=== PATIENT | female | born 1990 | race African-American/Black ===

== ENCOUNTER 2016-05-20 00:48 | Emergency (ER) | payer BC ==
[~2016-05-20] VITALS: Ht 167.6 cm; Wt 123.8 kg
[~2016-05-20 00:48] MED LIST: BENTYL10 MG PO; CITRATE OF MAG296 ML PO; LEVAQUIN500 MG PO; LEXAPRO10 MG PO; MEDROL DOSEPAK4 MG PO; MILK OF MAGN PO; NAPROXEN500 MG PO; NORCO 5/3251 TABLET PO; PRAZOSIN HCL1 MG PO; PREDNISONE20 MG PO; PROAIR HFA8.5 GM IH; ROBITUSSIN AC,T10 ML PO; TESSALON PERLE100 MG PO; ULTRAM50 MG PO; ZITHROMAX500 MG PO; ZOFRAN8 MG PO
[2016-05-20 00:50] VITALS: BP 138/107
[2016-05-20] MEDS ORDERED: NORCO 5/3251 TABLET PO (01:55)
[2016-05-20] MEDS ORDERED: NAPROSYN500 MG PO (01:55)
== END 2016-05-20 02:16 | disposition home or self-care (01) ==
LOC: EME 00:48
DX: S93.401A Sprain of unspecified ligament of right ankle, initial encounter (principal); S93.601A Unspecified sprain of right foot, initial encounter; W51.XXXA Accidental striking against or bumped into by another person, initial encounter; Y93.41 Activity, dancing
CPT/HCPCS: 73610; 73630; 99281; 99284

== ENCOUNTER 2016-06-06 18:39 | Emergency (ER) | payer OTHER, BC ==
[~2016-06-06] VITALS: Ht 167.6 cm; Wt 125.0 kg
[~2016-06-06 18:39] MED LIST changes: +NAPROSYN500 MG PO
[2016-06-06] MEDS ORDERED: SKELAXIN800 MG PO (21:06)
[2016-06-06] MEDS ORDERED: NAPROXEN500 MG PO (21:06)
[2016-06-06 21:23] VITALS: BP 135/77
== END 2016-06-06 21:23 | disposition home or self-care (01) ==
LOC: EME 18:39
DX: S16.1XXA Strain of muscle, fascia and tendon at neck level, initial encounter (principal); S09.90XA Unspecified injury of head, initial encounter; V49.40XA Driver injured in collision with unspecified motor vehicles in traffic accident, initial encounter; I10 Essential (primary) hypertension
CPT/HCPCS: 99281; 99284

== ENCOUNTER 2016-06-17 20:34 | Emergency (ER) | payer BC ==
[~2016-06-17] VITALS: Ht 167.6 cm; Wt 124.2 kg
[~2016-06-17 20:34] MED LIST changes: +SKELAXIN800 MG PO
[2016-06-17] MEDS ORDERED: MEDROL DOSEPAK4 MG PO (21:40)
[2016-06-17] MEDS ORDERED: ZANTAC300 MG PO (21:40)
[2016-06-17] MEDS ORDERED: EPIPEN ADU0.3 MG/0.3 IM (21:40)
[2016-06-17 22:31] VITALS: BP 123/65
== END 2016-06-17 22:20 | disposition home or self-care (01) ==
LOC: EME 20:34
DX: T78.1XXA Other adverse food reactions, not elsewhere classified, initial encounter (principal); R06.00 Dyspnea, unspecified; Z91.013 Allergy to seafood
CPT/HCPCS: 99281; 99285; J1100; J1200; J7030; S0028

== ENCOUNTER 2016-07-23 19:00 | Emergency (ER) | payer BC ==
[~2016-07-23] VITALS: Ht 167.6 cm; Wt 125.2 kg
[~2016-07-23 19:00] MED LIST changes: +EPIPEN ADU0.3 MG/0.3 IM; +ZANTAC300 MG PO
[2016-07-23 20:04] LABS: HEMATOCRIT 35.1 % (36.0-46.0); MCH 25.9 PG (29.0-34.0); MCHC 30.5 G/DL (30.0-36.0); MEAN PLAT.VOLUME 10.6 uM^3 (9.5-12.4); PLATELET COUNT 305 K/uL (156-360); RBC DIS.WIDTH-CV 16.7 % (11.8-14.6); RBC DIS.WIDTH-SD 52.5 % (39-53); RED BLOOD COUNT 4.13 M/uL (3.80-5.20); WHITE BLOOD COUNT 5.4 K/uL (4.1-10.2)
[2016-07-23 20:14] LABS: CHLORIDE 102 mEq/L (99-109)
[2016-07-23 20:15] LABS: POTASSIUM 3.6 mEq/L (3.7-5.4); SODIUM 137 mEq/L (136-147)
[2016-07-23 20:17] LABS: GLUCOSE 88 mg/dL (70-99)
[2016-07-23 20:18] LABS: ANION GAP 11 MEQ/L (2-14)
[2016-07-23 20:19] LABS: TOTAL BILIRUBIN 0.9 mg/dL (0.0-1.0)
[2016-07-23 20:20] LABS: ALKALINE PHOSPHATASE 60 IU/L (3-129); GFR ESTIMATE (CALCULATED) > 59 mL/min/
[2016-07-23 20:22] LABS: UREA NITROGEN (BUN) 6 mg/dL (9-23)
[2016-07-23 20:30] LABS: QUANTITATIVE HCG < 4.0 MIU/ML
[2016-07-23 21:35] LABS: ADD MIUA? YES; BILIRUBIN SMALL; BLOOD MODERATE; COLOR AMBER ((YELLOW)); GLUCOSE (STRIP) NEGATIVE; KETONES 5; LEUKOCYTES NEGATIVE; NITRITE NEGATIVE; PROTEIN (STRIP) 100; SPECIFIC GRAVITY 1.033 (1.000-1.030)
[2016-07-23 22:09] LABS: BACTERIA RARE /HPF; EPITHELIAL CELLS 4+ /HPF; MUCUS 2+ /LPF; WHITE BLOOD CELLS 0-5 /HPF (0-5)
[2016-07-23 22:10] LABS: CASTS NONE SEEN /LPF; CRYSTALS NONE SEEN
[2016-07-23] MEDS ORDERED: BENTYL20 MG PO (23:35)
[2016-07-23] MEDS ORDERED: REGLAN5 MG PO (23:35)
[2016-07-24] VITALS: BP 110/60
== END 2016-07-24 00:06 | disposition home or self-care (01) ==
LOC: EME 19:00
PROVIDERS: Nurse Practitioner Family
DX: I88.0 Nonspecific mesenteric lymphadenitis (principal); R11.2 Nausea with vomiting, unspecified; F17.200 Nicotine dependence, unspecified, uncomplicated
CPT/HCPCS: 74177; 80053; 81003; 84702; 85027; 87493; 87506; 99281; 99285; J1200; J1885; J2405; J3010; J7030; J7040

== ENCOUNTER 2016-08-04 08:11 | Emergency (ER) | payer SELFPAY ==
[~2016-08-04] VITALS: Ht 167.6 cm; Wt 123.6 kg
[~2016-08-04 08:11] MED LIST changes: +BENTYL20 MG PO; +REGLAN5 MG PO
[2016-08-04 08:14] VITALS: BP 118/83
[2016-08-04] MEDS ORDERED: FLEXERIL10 MG PO (08:30)
[2016-08-04] MEDS ORDERED: PREDNISONE20 MG PO (08:30)
[2016-08-04] MEDS ORDERED: MOTRIN800 MG PO (08:30)
== END 2016-08-04 09:07 | disposition home or self-care (01) ==
LOC: EME 08:11
DX: M54.2 Cervicalgia (principal); M54.89 Other dorsalgia; M25.612 Stiffness of left shoulder, not elsewhere classified; F17.200 Nicotine dependence, unspecified, uncomplicated
CPT/HCPCS: 99281; 99284; J7512

== ENCOUNTER 2016-09-25 09:27 | Emergency (ER) | payer SELFPAY ==
[~2016-09-25] VITALS: Ht 167.6 cm; Wt 126.1 kg
[~2016-09-25 09:27] MED LIST changes: +FLEXERIL10 MG PO; +MOTRIN800 MG PO
[2016-09-25 11:14] LABS: BASOPHIL COUNT 0.1 K/uL (0-0.1); EOSINOPHIL (%) 4.7 % (0-5); EOSINOPHIL COUNT 0.3 K/uL (0-0.3); HEMATOCRIT 33.2 % (36.0-46.0); IMMATURE GRANULOCYTE (%) 0.3 % (0.0-0.7); INSTRUMENT ABS NEUTROPHIL CT 3.3 K/uL; LYMPHOCYTE COUNT 1.7 K/uL (1.0-2.8); MCH 25.2 PG (29.0-34.0); MCHC 30.1 G/DL (30.0-36.0); MCV 83.6 FL (83-99); MEAN PLAT.VOLUME 11.7 uM^3 (9.5-12.4); MONOCYTE (%) 11.3 % (3-12); MONOCYTE COUNT 0.7 K/uL (0-0.8); NEUTROPHIL (%) 54.6 % (45-76); NEUTROPHIL COUNT 3.3 K/uL (1.8-6.4); PLATELET COUNT 361 K/uL (156-360); RBC DIS.WIDTH-CV 15.4 % (11.8-14.6); RBC DIS.WIDTH-SD 46.3 % (39-53); RED BLOOD COUNT 3.97 M/uL (3.80-5.20)
[2016-09-25 11:30] LABS: CHLORIDE 105 mEq/L (99-109); POTASSIUM 4.5 mEq/L (3.7-5.4); SODIUM 137 mEq/L (136-147)
[2016-09-25 11:31] LABS: GLUCOSE 86 mg/dL (70-99)
[2016-09-25 11:33] LABS: ANION GAP 10 MEQ/L (2-14)
[2016-09-25 11:35] LABS: GFR ESTIMATE (CALCULATED) > 59 mL/min/
[2016-09-25 11:36] LABS: UREA NITROGEN (BUN) 7 mg/dL (9-23)
[2016-09-25] MEDS ORDERED: MOTRIN600 MG PO (12:32)
[2016-09-25] MEDS ORDERED: VIBRAMYCIN100 MG PO (12:32)
[2016-09-25 13:18] VITALS: BP 135/79
== END 2016-09-25 13:22 | disposition home or self-care (01) ==
LOC: EME 09:27
PROVIDERS: Emergency Medicine
DX: J20.9 Acute bronchitis, unspecified (principal); F17.200 Nicotine dependence, unspecified, uncomplicated; J45.909 Unspecified asthma, uncomplicated; M79.1 Myalgia
CPT/HCPCS: 71020; 80048; 84443; 85025; 99281; 99284; J2270; J7030

== ENCOUNTER 2016-11-02 18:22 | Emergency (ER) | payer SELFPAY ==
[~2016-11-02] VITALS: Ht 167.6 cm; Wt 123.0 kg
[~2016-11-02 18:22] MED LIST changes: +MOTRIN600 MG PO; +VIBRAMYCIN100 MG PO
[2016-11-02 19:05] LABS: HEMATOCRIT 31.3 % (36.0-46.0); MCV 80.7 FL (83-99); MEAN PLAT.VOLUME 10.3 uM^3 (9.5-12.4); PLATELET COUNT 430 K/uL (156-360); RBC DIS.WIDTH-CV 15.7 % (11.8-14.6); RBC DIS.WIDTH-SD 45.8 % (39-53); RED BLOOD COUNT 3.88 M/uL (3.80-5.20); WHITE BLOOD COUNT 10.4 K/uL (4.1-10.2)
[2016-11-02 19:12] LABS: CHLORIDE 105 mEq/L (99-109); POTASSIUM 4.3 mEq/L (3.7-5.4); SODIUM 139 mEq/L (136-147)
[2016-11-02 19:13] LABS: GLUCOSE 93 mg/dL (70-99)
[2016-11-02 19:15] LABS: ANION GAP 11 MEQ/L (2-14)
[2016-11-02 19:17] LABS: GFR ESTIMATE (CALCULATED) > 59 mL/min/
[2016-11-02 19:18] LABS: UREA NITROGEN (BUN) 9 mg/dL (9-23)
[2016-11-02 19:24] LABS: TROP-I INTERPRETATION NEGATIVE; TROPONIN-I < 0.01 ng/mL (0.0-0.30)
[2016-11-02 21:24] LABS: TROP-I INTERPRETATION NEGATIVE; TROPONIN-I < 0.01 ng/mL (0.0-0.30)
[2016-11-02] MEDS ORDERED: NAPROSYN500 MG PO (22:02)
[2016-11-02] MEDS ORDERED: IMITREX50 MG PO (22:02)
[2016-11-02] MEDS ORDERED: REGLAN10 MG PO (22:02)
[2016-11-02 22:41] LABS: ADD MIUA? YES; BILIRUBIN NEGATIVE; BLOOD NEGATIVE; COLOR YELLOW ((YELLOW)); GLUCOSE (STRIP) NEGATIVE; KETONES NEGATIVE; LEUKOCYTES NEGATIVE; NITRITE NEGATIVE; PROTEIN (STRIP) NEGATIVE; SPECIFIC GRAVITY 1.012 (1.000-1.030); UROBILINOGEN 0.2 MG/DL (0.2-1.0)
[2016-11-02 22:54] LABS: BACTERIA RARE /HPF; EPITHELIAL CELLS 1+ /HPF; MUCUS TRACE /LPF; RED BLOOD CELLS 0-5 /HPF (0-5); WHITE BLOOD CELLS 0-5 /HPF (0-5)
[2016-11-02 22:59] VITALS: BP 130/61
== END 2016-11-02 23:00 | disposition home or self-care (01) ==
LOC: RME 18:22 → EME 18:22 → RME 23:00
PROVIDERS: Physician Assistant
DX: G43.909 Migraine, unspecified, not intractable, without status migrainosus (principal); R07.89 Other chest pain; J45.909 Unspecified asthma, uncomplicated; F17.200 Nicotine dependence, unspecified, uncomplicated
CPT/HCPCS: 71020; 80048; 81003; 84484; 85027; 93005; 99281; 99285; J1200; J1885; J2765; J3030; J7030

== ENCOUNTER 2016-11-10 06:38 | Emergency (ER) | payer SELFPAY ==
[~2016-11-10] VITALS: Ht 167.6 cm; Wt 123.1 kg
[~2016-11-10 06:38] MED LIST changes: +IMITREX50 MG PO; +REGLAN10 MG PO
[2016-11-10 07:42] LABS: HEMATOCRIT 30.3 % (36.0-46.0); MCH 24.1 PG (29.0-34.0); MCV 80.2 FL (83-99); RBC DIS.WIDTH-CV 15.7 % (11.8-14.6); RBC DIS.WIDTH-SD 45.5 % (39-53); RED BLOOD COUNT 3.78 M/uL (3.80-5.20)
[2016-11-10 07:47] LABS: CHLORIDE 105 mEq/L (99-109); POTASSIUM 4.3 mEq/L (3.7-5.4); SODIUM 140 mEq/L (136-147)
[2016-11-10 07:50] LABS: GLUCOSE 97 mg/dL (70-99)
[2016-11-10 07:51] LABS: ANION GAP 14 MEQ/L (2-14)
[2016-11-10 07:52] LABS: TOTAL BILIRUBIN 0.3 mg/dL (0.0-1.0)
[2016-11-10 07:53] LABS: ALKALINE PHOSPHATASE 66 IU/L (3-129); GFR ESTIMATE (CALCULATED) > 59 mL/min/
[2016-11-10 07:55] LABS: UREA NITROGEN (BUN) 10 mg/dL (9-23)
[2016-11-10 08:02] LABS: QUANTITATIVE HCG < 4.0 MIU/ML
[2016-11-10 08:06] LABS: BASOPHIL COUNT 0.1 K/uL (0-0.1); EOSINOPHIL (%) 2.5 % (0-5); EOSINOPHIL COUNT 0.3 K/uL (0-0.3); IMMATURE GRANULOCYTE (%) 0.7 % (0.0-0.7); IMMATURE GRANULOCYTE COUNT 0.1 K/uL; INSTRUMENT ABS NEUTROPHIL CT 6.7 K/uL; LYMPHOCYTE COUNT 3.2 K/uL (1.0-2.8); MONOCYTE (%) 6.4 % (3-12); MONOCYTE COUNT 0.7 K/uL (0-0.8); NEUTROPHIL (%) 60.6 % (45-76); NEUTROPHIL COUNT 6.7 K/uL (1.8-6.4)
[2016-11-10 08:20] LABS: MEAN PLAT.VOLUME 11.3 uM^3 (9.5-12.4); PLAT.SUFFICIENCY ADEQUATE
[2016-11-10 08:59] LABS: ADD MIUA? YES; BILIRUBIN NEGATIVE; BLOOD LARGE; COLOR YELLOW ((YELLOW)); GLUCOSE (STRIP) NEGATIVE; KETONES NEGATIVE; LEUKOCYTES TRACE; NITRITE NEGATIVE; PROTEIN (STRIP) 30; SPECIFIC GRAVITY 1.023 (1.000-1.030); UROBILINOGEN 0.2 MG/DL (0.2-1.0)
[2016-11-10 09:08] LABS: PLATELET COUNT 236 K/uL (156-360)
[2016-11-10 09:12] LABS: BACTERIA RARE /HPF; CASTS NONE SEEN /LPF; CRYSTALS NONE SEEN; EPITHELIAL CELLS RARE /HPF; MUCUS NONE SEEN /LPF; RED BLOOD CELLS 40-50 /HPF (0-5); WHITE BLOOD CELLS NONE SEEN /HPF (0-5)
[2016-11-10] MEDS ORDERED: ZOFRAN ODT8 MG PO (11:41)
[2016-11-10] MEDS ORDERED: BENTYL20 MG PO (11:41)
[2016-11-10 11:54] VITALS: BP 110/55
== END 2016-11-10 12:02 | disposition home or self-care (01) ==
LOC: EME → EDBD 06:38 → EME 06:38
PROVIDERS: Physician Assistant
DX: R10.31 Right lower quadrant pain (principal); R11.0 Nausea; N83.202 Unspecified ovarian cyst, left side; F17.200 Nicotine dependence, unspecified, uncomplicated
CPT/HCPCS: 76856; 80053; 81003; 84702; 85025; 99281; 99284; J2270

== ENCOUNTER 2016-11-29 20:54 | Emergency (ER) | payer SELFPAY ==
[~2016-11-29] VITALS: Ht 167.6 cm; Wt 119.8 kg
[~2016-11-29 20:54] MED LIST changes: +ZOFRAN ODT8 MG PO
[2016-11-29 23:41] LABS: HEMATOCRIT 30.3 % (36.0-46.0); MCH 23.6 PG (29.0-34.0); MCV 78.7 FL (83-99); MEAN PLAT.VOLUME 10.8 uM^3 (9.5-12.4); RBC DIS.WIDTH-CV 15.9 % (11.8-14.6); RBC DIS.WIDTH-SD 45.1 % (39-53); RED BLOOD COUNT 3.85 M/uL (3.80-5.20); WHITE BLOOD COUNT 11.8 K/uL (4.1-10.2)
[2016-11-29 23:42] LABS: PLATELET COUNT 471 K/uL (156-360)
[2016-11-29 23:48] LABS: CHLORIDE 105 mEq/L (99-109); POTASSIUM 3.6 mEq/L (3.7-5.4); SODIUM 142 mEq/L (136-147)
[2016-11-29 23:50] LABS: GLUCOSE 82 mg/dL (70-99)
[2016-11-29 23:51] LABS: ANION GAP 12 MEQ/L (2-14)
[2016-11-29 23:52] LABS: TOTAL BILIRUBIN 0.3 mg/dL (0.0-1.0)
[2016-11-29 23:54] LABS: ALKALINE PHOSPHATASE 81 IU/L (3-129); GFR ESTIMATE (CALCULATED) > 59 mL/min/
[2016-11-29 23:55] LABS: UREA NITROGEN (BUN) 10 mg/dL (9-23)
[2016-11-30 00:05] LABS: QUANTITATIVE HCG < 4.0 MIU/ML
[2016-11-30] MEDS ORDERED: NORCO 5/3251 TABLET PO (01:05)
[2016-11-30] MEDS ORDERED: FLEXERIL10 MG PO (01:05)
[2016-11-30] MEDS ORDERED: MEDROL DOSEPAK4 MG PO (01:05)
[2016-11-30 01:18] VITALS: BP 127/73
== END 2016-11-30 01:19 | disposition home or self-care (01) ==
LOC: EME 20:54
PROVIDERS: Physician Assistant
DX: M50.121 Cervical disc disorder at C4-C5 level with radiculopathy (principal); M50.122 Cervical disc disorder at C5-C6 level with radiculopathy; M50.123 Cervical disc disorder at C6-C7 level with radiculopathy; D64.9 Anemia, unspecified; M25.512 Pain in left shoulder; R42 Dizziness and giddiness; N92.0 Excessive and frequent menstruation with regular cycle; F17.200 Nicotine dependence, unspecified, uncomplicated
CPT/HCPCS: 72125; 73030; 80053; 84702; 85027; 99281; 99283; J7512

== ENCOUNTER 2016-12-05 21:11 | Emergency (ER) | payer SELFPAY ==
[~2016-12-05] VITALS: Ht 167.6 cm; Wt 123.0 kg
[2016-12-05] MEDS ORDERED: PREDNISONE20 MG PO (22:39)
[2016-12-05 23:35] VITALS: BP 125/80
== END 2016-12-05 23:37 | disposition home or self-care (01) ==
LOC: EME 21:11 → EXP 21:11
DX: M54.12 Radiculopathy, cervical region (principal); J45.909 Unspecified asthma, uncomplicated
CPT/HCPCS: 99281; 99284; J7512

== ENCOUNTER 2016-12-14 01:09 | Emergency (ER) | payer SELFPAY ==
[~2016-12-14] VITALS: Ht 170.2 cm; Wt 121.2 kg
[2016-12-14 01:11] VITALS: BP 156/100
[2016-12-14] MEDS ORDERED: MOTRIN800 MG PO (02:41)
== END 2016-12-14 02:59 | disposition home or self-care (01) ==
LOC: EME 01:09
DX: S43.422A Sprain of left rotator cuff capsule, initial encounter (principal); X58.XXXA Exposure to other specified factors, initial encounter; F17.200 Nicotine dependence, unspecified, uncomplicated
CPT/HCPCS: 99281; 99283

== ENCOUNTER 2017-01-02 16:07 | Emergency (ER) | payer SELFPAY ==
[~2017-01-02] VITALS: Ht 167.6 cm; Wt 119.3 kg
[2017-01-02] MEDS ORDERED: ULTRAM50 MG PO (17:35)
[2017-01-02 17:51] LABS: ADD MIUA? YES; BILIRUBIN NEGATIVE; BLOOD NEGATIVE; COLOR YELLOW ((YELLOW)); GLUCOSE (STRIP) NEGATIVE; KETONES NEGATIVE; LEUKOCYTES NEGATIVE; NITRITE NEGATIVE; PROTEIN (STRIP) NEGATIVE; SPECIFIC GRAVITY 1.027 (1.000-1.030); UROBILINOGEN 0.2 MG/DL (0.2-1.0)
[2017-01-02 18:01] LABS: MCH 22.9 PG (29.0-34.0); MCHC 29.6 G/DL (30.0-36.0); MCV 77.1 FL (83-99); MEAN PLAT.VOLUME 10.8 uM^3 (9.5-12.4); PLATELET COUNT 455 K/uL (156-360); RBC DIS.WIDTH-CV 16.2 % (11.8-14.6); RBC DIS.WIDTH-SD 45.5 % (39-53)
[2017-01-02 18:07] LABS: CHLORIDE 108 mEq/L (99-109); POTASSIUM 3.7 mEq/L (3.7-5.4); SODIUM 142 mEq/L (136-147)
[2017-01-02 18:09] LABS: GLUCOSE 81 mg/dL (70-99)
[2017-01-02 18:10] LABS: ANION GAP 13 MEQ/L (2-14)
[2017-01-02 18:11] LABS: TOTAL BILIRUBIN 0.4 mg/dL (0.0-1.0)
[2017-01-02 18:12] LABS: ALKALINE PHOSPHATASE 65 IU/L (3-129)
[2017-01-02 18:12] LABS: BACTERIA NONE SEEN /HPF; EPITHELIAL CELLS 2+ /HPF; MUCUS TRACE /LPF; RED BLOOD CELLS 0-5 /HPF (0-5); UCUL ADDED? NO; WHITE BLOOD CELLS 0-5 /HPF (0-5)
[2017-01-02 18:13] LABS: GFR ESTIMATE (CALCULATED) > 59 mL/min/
[2017-01-02 18:14] LABS: UREA NITROGEN (BUN) 8 mg/dL (9-23)
[2017-01-02 18:26] LABS: QUANTITATIVE HCG < 4.0 MIU/ML
[2017-01-02] MEDS ORDERED: MOTRIN800 MG PO (19:04)
[2017-01-02] MEDS ORDERED: ZOFRAN ODT4 MG PO (19:04)
[2017-01-02 19:24] VITALS: BP 129/94
== END 2017-01-02 19:29 | disposition home or self-care (01) ==
LOC: EME 16:07
PROVIDERS: Nurse Practitioner Family
DX: R10.9 Unspecified abdominal pain (principal); M54.9 Dorsalgia, unspecified; R11.2 Nausea with vomiting, unspecified; R19.7 Diarrhea, unspecified; J45.909 Unspecified asthma, uncomplicated; F17.200 Nicotine dependence, unspecified, uncomplicated
CPT/HCPCS: 74177; 80053; 81003; 84702; 85027; 99281; 99285; J1200; J1885; J2405; J7030

== ENCOUNTER 2017-01-11 00:55 | Emergency (ER) | payer SELFPAY ==
[~2017-01-11] VITALS: Ht 167.6 cm; Wt 119.0 kg
[~2017-01-11 00:55] MED LIST changes: +ZOFRAN ODT4 MG PO
[2017-01-11 01:36] LABS: INFLUENZA A VIRAL ANTIGEN NEGATIVE; INFLUENZA B VIRAL ANTIGEN NEGATIVE
[2017-01-11 04:18] LABS: BASOPHIL COUNT 0.1 K/uL (0-0.1); EOSINOPHIL (%) 0.6 % (0-5); EOSINOPHIL COUNT 0.1 K/uL (0-0.3); HEMATOCRIT 26.2 % (36.0-46.0); IMMATURE GRANULOCYTE (%) 0.5 % (0.0-0.7); IMMATURE GRANULOCYTE COUNT 0.1 K/uL; INSTRUMENT ABS NEUTROPHIL CT 9.5 K/uL; LYMPHOCYTE COUNT 2.4 K/uL (1.0-2.8); MCH 22.6 PG (29.0-34.0); MCHC 29.8 G/DL (30.0-36.0); MCV 75.9 FL (83-99); MEAN PLAT.VOLUME 10.7 uM^3 (9.5-12.4); MONOCYTE COUNT 0.9 K/uL (0-0.8); NEUTROPHIL (%) 73.4 % (45-76); NEUTROPHIL COUNT 9.5 K/uL (1.8-6.4); PLATELET COUNT 386 K/uL (156-360); RBC DIS.WIDTH-CV 16.8 % (11.8-14.6); RBC DIS.WIDTH-SD 45.2 % (39-53); RED BLOOD COUNT 3.45 M/uL (3.80-5.20)
[2017-01-11 04:31] LABS: CHLORIDE 105 mEq/L (99-109); POTASSIUM 3.5 mEq/L (3.7-5.4); SODIUM 138 mEq/L (136-147)
[2017-01-11 04:33] LABS: GLUCOSE 91 mg/dL (70-99)
[2017-01-11 04:35] LABS: ANION GAP 12 MEQ/L (2-14)
[2017-01-11 04:37] LABS: GFR ESTIMATE (CALCULATED) > 59 mL/min/
[2017-01-11 04:38] LABS: UREA NITROGEN (BUN) 7 mg/dL (9-23)
[2017-01-11 04:40] LABS: INTERNAL CONTROL VALID? YES; MONOSPOT (MONONUCLEOSIS SEROL) NEGATIVE
[2017-01-11 04:48] LABS: ADD MIUA? NO; BILIRUBIN NEGATIVE; BLOOD NEGATIVE; COLOR YELLOW ((YELLOW)); GLUCOSE (STRIP) NEGATIVE; KETONES NEGATIVE; LEUKOCYTES NEGATIVE; NITRITE NEGATIVE; PROTEIN (STRIP) NEGATIVE; SPECIFIC GRAVITY 1.019 (1.000-1.030); UROBILINOGEN 0.2 MG/DL (0.2-1.0)
[2017-01-11 04:50] LABS: UCUL ADDED? NO
[2017-01-11] MEDS ORDERED: MOTRIN600 MG PO (06:01)
[2017-01-11] MEDS ORDERED: TYLENOL WITH C1 EACH PO (06:01)
[2017-01-11 06:14] VITALS: BP 113/69
== END 2017-01-11 06:15 | disposition home or self-care (01) ==
LOC: EME 00:55
PROVIDERS: Emergency Medicine
DX: J06.9 Acute upper respiratory infection, unspecified (principal); Z87.01 Personal history of pneumonia (recurrent); F17.200 Nicotine dependence, unspecified, uncomplicated
CPT/HCPCS: 71020; 80048; 81003; 85025; 86308; 87502; 87651 90; 99281; 99285; J1100; J1885; J3010; J7030

== ENCOUNTER 2017-02-07 19:46 | Emergency (ER) | payer SELFPAY ==
[~2017-02-07] VITALS: Ht 167.6 cm; Wt 122.6 kg
[~2017-02-07 19:46] MED LIST changes: +TYLENOL WITH C1 EACH PO
[2017-02-07 21:40] LABS: HEMATOCRIT 28.9 % (36.0-46.0); MCH 22.4 PG (29.0-34.0); MCHC 30.1 G/DL (30.0-36.0); MCV 74.3 FL (83-99); MEAN PLAT.VOLUME 10.8 uM^3 (9.5-12.4); PLATELET COUNT 462 K/uL (156-360); RBC DIS.WIDTH-CV 17.2 % (11.8-14.6); RED BLOOD COUNT 3.89 M/uL (3.80-5.20); WHITE BLOOD COUNT 11.4 K/uL (4.1-10.2)
[2017-02-07 21:45] LABS: CHLORIDE 104 mEq/L (99-109); POTASSIUM 3.1 mEq/L (3.7-5.4); SODIUM 140 mEq/L (136-147)
[2017-02-07 21:47] LABS: GLUCOSE 133 mg/dL (70-99)
[2017-02-07 21:49] LABS: ANION GAP 14 MEQ/L (2-14)
[2017-02-07 21:51] LABS: GFR ESTIMATE (CALCULATED) > 59 mL/min/
[2017-02-07 21:52] LABS: UREA NITROGEN (BUN) 8 mg/dL (9-23)
[2017-02-07 23:40] LABS: D-DIMER ELISA < 150.00 ng/mLDDU (<230)
[2017-02-08] MEDS ORDERED: PREDNISONE20 MG PO (01:09)
[2017-02-08] MEDS ORDERED: DIFLUCAN150 MG PO (01:09)
[2017-02-08] MEDS ORDERED: TESSALON PERLE100 MG PO (01:09)
[2017-02-08] MEDS ORDERED: VENTOLIN HFA18 GM IH (01:09)
[2017-02-08 01:20] VITALS: BP 136/87
== END 2017-02-08 01:21 | disposition home or self-care (01) ==
LOC: EME 19:46
DX: B34.9 Viral infection, unspecified (principal); J06.9 Acute upper respiratory infection, unspecified; J40 Bronchitis, not specified as acute or chronic; Z87.09 Personal history of other diseases of the respiratory system; Z87.891 Personal history of nicotine dependence; R11.10 Vomiting, unspecified; R00.0 Tachycardia, unspecified
CPT/HCPCS: 71020; 80048; 85027; 85379; 94640; 99281; 99284; J2930; J7030; J7512

== ENCOUNTER 2017-05-12 09:13 | Emergency (ER) | payer OTHER ==
[~2017-05-12] VITALS: Ht 165.1 cm; Wt 121.6 kg
[~2017-05-12 09:13] MED LIST changes: +DIFLUCAN150 MG PO; +VENTOLIN HFA18 GM IH
[2017-05-12 12:26] VITALS: BP 133/80
== END 2017-05-12 12:29 | disposition home or self-care (01) ==
LOC: EME 09:13
DX: R51 Headache (principal); J45.909 Unspecified asthma, uncomplicated; G43.909 Migraine, unspecified, not intractable, without status migrainosus; Z91.041 Radiographic dye allergy status; F17.200 Nicotine dependence, unspecified, uncomplicated
CPT/HCPCS: 70450; J0780; J1200; J2060; J7030

== ENCOUNTER 2017-06-19 00:24 | Emergency (ER) | payer OTHER ==
[~2017-06-19] VITALS: Ht 167.6 cm; Wt 123.8 kg
[2017-06-19] MEDS ORDERED: ZITHROMAX250 MG PO (06:08)
[2017-06-19] MEDS ORDERED: MOTRIN600 MG PO (06:09)
[2017-06-19] MEDS ORDERED: TYLENOL WITH C1 EACH PO (06:09)
[2017-06-19 06:18] VITALS: BP 141/68
== END 2017-06-19 06:18 | disposition home or self-care (01) ==
LOC: EME 00:24
PROVIDERS: Emergency Medicine
DX: J18.9 Pneumonia, unspecified organism (principal); J02.9 Acute pharyngitis, unspecified; R49.0 Dysphonia; F17.200 Nicotine dependence, unspecified, uncomplicated
CPT/HCPCS: 71046; 87502; 87651 90; J1100

== ENCOUNTER 2017-08-06 18:40 | Inpatient (IN) | payer OTHER ==
[~2017-08-06] VITALS: Ht 167.6 cm; Wt 125.6 kg
[~2017-08-06 18:40] MED LIST changes: +ZITHROMAX250 MG PO
[2017-08-06 19:33] LABS: HEMATOCRIT 30.5 % (36.0-46.0); HEMOGLOBIN 9.7 G/DL (11.9-15.5); MCH 26.1 PG (29.0-34.0); MCHC 31.8 G/DL (30.0-36.0); PLATELET COUNT 385 K/uL (156-360); RBC DIS.WIDTH-CV 16.2 % (11.8-14.6); RBC DIS.WIDTH-SD 48.4 % (39-53); RED BLOOD COUNT 3.72 M/uL (3.80-5.20)
[2017-08-06 19:43] LABS: CHLORIDE 105 mEq/L (99-109); POTASSIUM 3.5 mEq/L (3.7-5.4); SODIUM 141 mEq/L (136-147)
[2017-08-06 19:45] LABS: GLUCOSE 103 mg/dL (70-99)
[2017-08-06 19:48] LABS: CREATININE 0.7 mg/dL (0.6-1.3); GFR ESTIMATE (CALCULATED) > 59 mL/min/
[2017-08-06 19:49] LABS: UREA NITROGEN (BUN) 9 mg/dL (9-23)
[2017-08-06 19:57] LABS: TROP-I INTERPRETATION NEGATIVE; TROPONIN-I < 0.01 ng/mL (0.0-0.30)
[2017-08-06 21:34] LABS: QUANTITATIVE HCG < 4.0 MIU/ML
[2017-08-06 22:33] LABS: D-DIMER ELISA < 150.00 ng/mLDDU (<230)
[2017-08-07] LABS: CARBON DIOXIDE (BICARBONATE) 26.1 MEQ/L (20-31)
[2017-08-07] MEDS ORDERED: TYLENOL EXTRA500 MG PO (00:35)
[2017-08-07 03:45] VITALS: BP 126/65
[2017-08-07 07:20] VITALS: BP 114/55
[2017-08-07 11:07] VITALS: BP 111/52
[2017-08-07 15:29] VITALS: BP 127/59
[2017-08-07 20:50] VITALS: BP 125/56
[2017-08-08] VITALS (7 sets, daily range): BP systolic 98–137; BP diastolic 51–77
[2017-08-08 12:28] LABS: HEMATOCRIT 31.8 % (36.0-46.0); HEMOGLOBIN 9.8 G/DL (11.9-15.5); MCH 25.9 PG (29.0-34.0); MCHC 30.8 G/DL (30.0-36.0); MCV 84.1 FL (83-99); PLATELET COUNT 448 K/uL (156-360); RBC DIS.WIDTH-CV 16.4 % (11.8-14.6); RBC DIS.WIDTH-SD 50.6 % (39-53); RED BLOOD COUNT 3.78 M/uL (3.80-5.20)
[2017-08-08 13:20] LABS: CHLORIDE 104 MEQ/L (99-109); CREATININE 0.6 MG/DL (0.6-1.3); GFR ESTIMATE (CALCULATED) > 59 mL/min/; GLUCOSE 131 mg/dL (70-99); SODIUM 136 MEQ/L (136-147); UREA NITROGEN (BUN) 11 mg/dL (9-23)
[2017-08-08 13:22] LABS: POTASSIUM 4.4 MEQ/L (3.7-5.4)
[2017-08-09 07:37] VITALS: BP 106/57
[2017-08-09] MEDS ORDERED: DULERA 200 MCG/13 GM IH (11:13)
[2017-08-09] MEDS ORDERED: PREDNISONE5 M1 PO (11:13)
[2017-08-09] MEDS ORDERED: TRAMADOL HCL50 MG PO (11:13)
[2017-08-09] MEDS ORDERED: NICOTINE PATCH1 EAC2 TD (11:13)
== END 2017-08-09 12:51 | disposition home or self-care (01) | DRG 202 ==
LOC: EME 18:40 → ENRESERV 08-07 01:27 → EDOF 08-07 01:29 → ENRESERV 08-07 01:34 → 4EAST 08-07 03:58 → 5SOUTH 08-07 10:13 → ENRESERV 08-08 00:23 → 5SOUTH 08-08 01:06 → ENPENDDIS 08-09 12:06 → 5SOUTH 08-09 12:51
PROVIDERS: Hospitalist; Physician Assistant
DX: J20.9 Acute bronchitis, unspecified (principal); J45.41 Moderate persistent asthma with (acute) exacerbation; E87.6 Hypokalemia; D72.829 Elevated white blood cell count, unspecified; T38.0X5A Adverse effect of glucocorticoids and synthetic analogues, initial encounter; R00.0 Tachycardia, unspecified; T48.6X5A Adverse effect of antiasthmatics, initial encounter; F17.210 Nicotine dependence, cigarettes, uncomplicated; E66.01 Morbid (severe) obesity due to excess calories; Z68.41 Body mass index [BMI] 40.0-44.9, adult; Z71.6 Tobacco abuse counseling; Z80.0 Family history of malignant neoplasm of digestive organs
CPT/HCPCS: 71046; 80048; 80306 90; 81003; 82803; 84484; 84702; 85027; 85379; 87502; 93005; 94640; 94640 76; 94644; 94645; 99202; 99281; 99285; J1200; J1650; J1885; J2060; J2920; J2930; J3475; J7030; J7512

== ENCOUNTER 2017-08-25 02:28 | Emergency (ER) | payer OTHER ==
[~2017-08-25] VITALS: Ht 167.6 cm; Wt 124.1 kg
[~2017-08-25 02:28] MED LIST changes: +DULERA 200 MCG/13 GM IH; +NICOTINE PATCH1 EAC2 TD; +PREDNISONE5 M1 PO; +TRAMADOL HCL50 MG PO; +TYLENOL EXTRA500 MG PO
[2017-08-25] MEDS ORDERED: ALBUTEROL2.5 MG/3 M IH (03:57)
[2017-08-25] MEDS ORDERED: NEBULIZER MC (03:57)
[2017-08-25] MEDS ORDERED: NASAL DECONGEST30 M4 PO (03:57)
[2017-08-25] MEDS ORDERED: HYCODAN SYRUP480 ML PO (05:39)
[2017-08-25 05:46] VITALS: BP 119/98
== END 2017-08-25 05:48 | disposition home or self-care (01) ==
LOC: EME 02:28
DX: J45.901 Unspecified asthma with (acute) exacerbation (principal); Z87.09 Personal history of other diseases of the respiratory system; R09.81 Nasal congestion; E05.90 Thyrotoxicosis, unspecified without thyrotoxic crisis or storm; F41.9 Anxiety disorder, unspecified; F17.200 Nicotine dependence, unspecified, uncomplicated; Z87.01 Personal history of pneumonia (recurrent); Z87.42 Personal history of other diseases of the female genital tract; Z98.890 Other specified postprocedural states; Z91.013 Allergy to seafood; Z91.041 Radiographic dye allergy status
CPT/HCPCS: 94640; 94640 76; 99281; 99284

== ENCOUNTER 2017-10-17 01:35 | Emergency (ER) | payer OTHER ==
[~2017-10-17] VITALS: Ht 167.6 cm; Wt 118.0 kg
[~2017-10-17 01:35] MED LIST changes: +ALBUTEROL2.5 MG/3 M IH; +HYCODAN SYRUP480 ML PO; +NASAL DECONGEST30 M4 PO; +NEBULIZER MC
[2017-10-17] MEDS ORDERED: MEDROL DOSEPAK4 MG PO (06:14)
[2017-10-17 06:52] VITALS: BP 128/78
== END 2017-10-17 06:52 | disposition home or self-care (01) ==
LOC: EME 01:35
DX: S80.02XA Contusion of left knee, initial encounter (principal); X50.1XXA Overexertion from prolonged static or awkward postures, initial encounter; F41.9 Anxiety disorder, unspecified; J45.909 Unspecified asthma, uncomplicated; F17.200 Nicotine dependence, unspecified, uncomplicated
CPT/HCPCS: 73564; 99281; 99284; J1885